=== PATIENT | female | born 1995 | race African-American/Black ===

== ENCOUNTER 2018-06-03 13:10 | Emergency (ER) | payer OTHER ==
[~2018-06-03] VITALS: Ht 152.4 cm; Wt 56.7 kg
[2018-06-03] MEDS ORDERED: ORPH-16 PO (13:27)
[2018-06-03] MEDS ORDERED: NAPR500T8 PO (13:27)
--- NOTE | 2018-06-03 13:28 | PHYS DOC ---
Past History Past Medical History: No Pertinent History Past Surgical History: No Surgical History Smoking: Non-smoker Alcohol Use: None Drug Use: None Adult General Chief Complaint Chief Complaint: CHEST WALL PAIN HPI HPI Patient is a 22 year old female who presents with chest wall pain. Patient states that she forcefully sneezed nine days ago and developed right chest wall pain shortly after. Patient describes the pain as sharp and intermittent. Patient states that the pain is worse with laughing and turning and is better with laying down. She reports that she has been taking ibuprofen without relief. Patient denies worsening of the pain with taking a deep breath. Patient currently rates her pain to be 8/10. She reports that it radiates to her back at times. LNMP was 05/16/18. Denies any chance of . Denies shortness of breath. Review of Systems Review of Systems Constitutional: Denies fever or chills Eyes: Denies change in visual acuity, redness, or eye pain HENT: Denies nasal congestion or sore throat Respiratory: Denies cough or shortness of breath Cardiovascular: Denies chest pain or palpitations. GI: Denies abdominal pain, nausea, vomiting, or diarrhea : Denies dysuria or hematuria Musculoskeletal: Reports chest wall pain. Denies joint pain Integument: Denies rash or skin lesions Neurologic: Denies headache, focal weakness or sensory changes Complete systems were reviewed and found to be within normal limits, except as documented in this note. Allergies Allergies Allergies Coded Allergies Type Severity Reaction Last Updated Verified No Known Drug Allergies 06/03/18 No Physical Exam Physical Exam Constitutional: Well developed, well nourished, no acute distress, non-toxic appearance. HENT: Normocephalic, atraumatic, oropharynx moist, nose normal. Eyes: PERRL, conjunctiva normal, no discharge. Neck: Normal range of motion, supple, no stridor. Cardiovascular: Heart rate regular rhythm, no murmur Lungs & Thorax: Bilateral breath sounds clear to auscultation. Minimal tenderness to mid right lateral ribs on palpation. Abdomen: Soft, no tenderness on palpation. Skin: Warm, dry, no rash Back: No midline tenderness, no CVA tenderness. Extremities: ROM intact, no edema. Neurologic: Alert and oriented X3, normal motor function, normal sensory function, no focal deficits noted. Psychologic: Affect normal. Speech normal. EKG EKG [] Radiology/Procedures Radiology/Procedures PROCEDURE: CHEST PA & LATERAL CHEST PA LATERAL Technique: PA and lateral views of the chest were obtained. Clinical History: right side rib pain x 10 days, pt shielded, LMP 05-14-2018, 2 PA v do to patients long Hair artifact on 1st image Comparison: None. Findings: The heart and pulmonary vasculature appear within normal limits. The lungs are clear. The pleural margins are clear. Impression: No acute chest process is seen. Electronically signed by: Saran Gamez III, MD (06/03/2018 1:47 PM) [id number] Course & Med Decision Making Course & Med Decision Making Patient is a 22 year old female who presents to the ED for right chest wall pain. No clinical signs of PE/DVT. PERC negative. Patient treated with a dose of Dexamethasone in the ED. CXR performed which did no reveal and rib fracture or other acute abnormality. Patient is stable for discharge home with outpatient follow up with her PCP. Diagnostic findings and plan discussed with the patient who verbalized understanding and agreed with plan. Prescription for Naproxen and Norflex provided. Dragon Disclaimer Dragon Disclaimer This electronic medical record was generated, in whole or in part, using a voice recognition dictation system. Departure Departure: Impression: Primary Impression: Chest wall pain Disposition: HOME, SELF-CARE Condition: STABLE Referrals: TAO CAMPA MD (PCP) Patient Instructions: Chest Wall Pain, [id number] Scripts Naproxen (NAPROXEN) 500 Mg Tablet.dr 1 TAB PO Q12HR PRN for PAIN, #30 TAB Prov: PAVEL LEVIN DO 06/03/18 Orphenadrine Citrate (ORPHENADRINE CITRATE) 100 Mg Tablet.er 1 TAB PO BID PRN for MUSCLE PAIN, #14 TAB 0 Refills Prov: PAVEL LEVIN DO 06/03/18 PAVEL LEVIN DO Jun 03, 2018 13:28
[2018-06-03] MEDS ORDERED: DEXAMETHASONE 4 MG TABLET PO ONE (13:30)
[2018-06-03 13:40] VITALS: BP 151/93
--- NOTE | 2018-06-03 13:50 | RAD ---
CHEST PA LATERAL Technique: PA and lateral views of the chest were obtained. Clinical History: right side rib pain x 10 days, pt shielded, LMP 05-14-2018, 2 PA v do to patients long Hair artifact on 1st image Comparison: None. Findings: The heart and pulmonary vasculature appear within normal limits. The lungs are clear. The pleural margins are clear. Impression: No acute chest process is seen. Electronically signed by: Saran Gamez III, MD (06/03/2018 1:47 PM) [id number]
== END 2018-06-03 13:43 | disposition home or self-care (01) ==
LOC: ER 13:10
DX: R07.89 Other chest pain (principal)
CPT/HCPCS: 71046; 99284; J8540